=== PATIENT | female | born 1995 | race Caucasian/White ===

== ENCOUNTER 2022-02-27 14:26 | Emergency (ER) | payer OTHER ==
[~2022-02-27] VITALS: Ht 162.6 cm; Wt 81.7 kg
[2022-02-27] MEDS ORDERED: HYDROCODON-ACE1 EA10 PO (15:47)
[2022-02-27] MEDS ORDERED: DOXYCYCLINE HY100 MG PO (15:47)
[2022-02-27] MEDS ORDERED: METRONIDAZOLE500 MG PO (15:47)
== END 2022-02-27 16:13 | disposition home or self-care (01) ==
LOC: ED 14:26
DX: N73.0 Acute parametritis and pelvic cellulitis (principal); J45.909 Unspecified asthma, uncomplicated
CPT/HCPCS: 81001; 84703; 85025; 96374; 96375; 99284-25; J0696; J1885